=== PATIENT | male | born 1970 | race Caucasian/White ===

== ENCOUNTER 2020-06-26 16:30 | Outpatient (CLI) | payer SELFPAY ==
[2020-06-26 17:26] LABS: Estmated Average Glucose 232; Hemoglobin A1C 9.7 % (4.0-6.0)
[2020-06-26 17:32] LABS: Alanine Aminotransferase 14 U/L (0-41); Albumin Level 3.8 g/dL (3.5-5.2); Alkaline Phosphatase 96 IU/L (40-130); Anion Gap 14.5 (5-19); Aspartate Amino Transferase 16 U/L (0-40); Blood Urea Nitrogen 17 mg/dL (6-20); Calcium 10.2 mg/dL (8.5-10.5); Carbon Dioxide 25 mmol/L (22-29); Chloride 99 mmol/L (98-107); Chol HDL Ratio 5.49 mg/dL (1.0-5.00); Cholesterol 214 mg/dL (0-200); Glomerular Filtration Rate 64.6 mL/min (90-130); Glucose 269 mg/dL (65-115); HDL Cholesterol 39 mg/dL (60-100); LDL Cholesterol Calculated 118 mg/dL (50-129); LDL HDL Ratio 3.03 RATIO (0.00-3.22); Osmolality Calculated 284 mOsm/kg (285-295); Potassium 4.5 mmol/L (3.5-5.1); Sodium 134 mmol/L (136-145); Total Bilirubin 0.5 mg/dL (0.15-1.2); Total Protein 7.8 g/dL (6.6-8.7); Triglycerides 284 mg/dL (0-150); Uric Acid 7.3 mg/dL (3.4-7.0)
[2020-06-26 17:37] LABS: Creatinine Urine, Random 128 mg/dL (39-259)
[2020-06-26 17:47] LABS: Microalbum Creatinine Ratio Ur 8 mg/dL (0-20); Microalbumin Random Urine 1 ug/dL (0-20)
== END 2020-06-26 16:31 | disposition home or self-care (01) ==
LOC: LAB 16:33
PROVIDERS: Visit Provider General Practice
DX: E11.9 Type 2 diabetes mellitus without complications (principal)
CPT/HCPCS: 80053; 80061; 82044; 83036; 84550

== ENCOUNTER → 2022-01-26 10:15 | Outpatient (BNVA) | payer BC, SELFPAY | PROVIDERS: PCP Family Medicine; Visit Provider Family Medicine | DX: I25.10 Atherosclerotic heart disease of native coronary artery without angina pectoris (principal); I10 Essential (primary) hypertension; E11.65 Type 2 diabetes mellitus with hyperglycemia; B00.9 Herpesviral infection, unspecified; Z12.5 Encounter for screening for malignant neoplasm of prostate; Z11.59 Encounter for screening for other viral diseases; Z91.89 Other specified personal risk factors, not elsewhere classified; Z11.4 Encounter for screening for human immunodeficiency virus [HIV]; E78.2 Mixed hyperlipidemia | CPT/HCPCS: 80053; 80061; 82043; 83036; 84153; 84550; 85025; 86803; 87806 ==

== ENCOUNTER → 2022-08-30 09:55 | Outpatient (BNVA) | payer BC, SELFPAY | PROVIDERS: PCP Family Medicine; Visit Provider Family Medicine | DX: E11.65 Type 2 diabetes mellitus with hyperglycemia (principal); E78.2 Mixed hyperlipidemia; I10 Essential (primary) hypertension; I25.10 Atherosclerotic heart disease of native coronary artery without angina pectoris | CPT/HCPCS: 80048; 80061; 83036; 84443 ==

== ENCOUNTER → 2023-02-21 10:31 | Outpatient (BNVA) | payer BC, SELFPAY | PROVIDERS: PCP Family Medicine; Visit Provider Family Medicine | DX: E11.65 Type 2 diabetes mellitus with hyperglycemia (principal); E78.2 Mixed hyperlipidemia; I10 Essential (primary) hypertension; I25.10 Atherosclerotic heart disease of native coronary artery without angina pectoris; Z12.5 Encounter for screening for malignant neoplasm of prostate | CPT/HCPCS: 80053; 80061; 83036; 84443; 85025; G0103 ==

== ENCOUNTER 2023-06-28 18:57 | Emergency (ER) | payer BC, SELFPAY ==
--- NOTE | 2023-06-28 18:59 | XRR_ITS ---
PROCEDURE INFORMATION: Exam: XR Left Hand Exam date and time: 06/28/2023 7:04 PM Age: 52 years old Clinical indication: Injury or trauma; Fall; Dislocation; Severity not specified; Left; Index finger TECHNIQUE: Imaging protocol: Radiologic exam of the left hand. Views: 3 or more views. COMPARISON: No relevant prior studies available. FINDINGS: Bones/joints: Ulnar and dorsal subluxation of the 2nd middle phalanx relative to the proximal phalanx without fracture. Soft tissues: Normal. XR/XR hand LT min 3V* [id number] IMPRESSION: Ulnar and dorsal subluxation of the 2nd middle phalanx relative to the proximal phalanx without fracture.
[2023-06-28 19:03] VITALS: BP 156/82; PULSE 91; RESP 16; TEMP 36.2; O2SAT 98; BMI 45.4
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
== END 2023-06-28 20:04 | disposition home or self-care (01) ==
PROVIDERS: Emergency Provider Nurse Practitioner Family; PCP Family Medicine
DX: S63.281A Dislocation of proximal interphalangeal joint of left index finger, initial encounter (principal); Z79.82 Long term (current) use of aspirin; Z79.4 Long term (current) use of insulin; Z79.84 Long term (current) use of oral hypoglycemic drugs; V19.3XXA Pedal cyclist (driver) (passenger) injured in unspecified nontraffic accident, initial encounter
CPT/HCPCS: 26770; 73130; 99283

== ENCOUNTER → 2023-08-15 08:45 | Outpatient (BNVA) | payer BC, SELFPAY | PROVIDERS: PCP Family Medicine; Visit Provider Family Medicine | DX: M79.642 Pain in left hand (principal); E78.2 Mixed hyperlipidemia; E11.65 Type 2 diabetes mellitus with hyperglycemia; M10.9 Gout, unspecified; I10 Essential (primary) hypertension; I25.10 Atherosclerotic heart disease of native coronary artery without angina pectoris | CPT/HCPCS: 80053; 80061; 83036; 84443; 84550 ==

== ENCOUNTER → 2023-09-02 08:44 | Outpatient (BNVA) | payer BC, SELFPAY | PROVIDERS: PCP Family Medicine; Referring Provider Family Medicine; Visit Provider Physician Assistant | DX: S67.22XA Crushing injury of left hand, initial encounter; S63.281A Dislocation of proximal interphalangeal joint of left index finger, initial encounter; W17.89XA Other fall from one level to another, initial encounter | CPT/HCPCS: 73130 ==

== ENCOUNTER 2023-09-06 07:55 | Outpatient (RCR) | payer BC, SELFPAY | END 2023-09-29 23:59 | disposition home or self-care (01) | LOC: SOT 07:55 | PROVIDERS: PCP Family Medicine; Visit Provider Physician Assistant | DX: S67.22XD Crushing injury of left hand, subsequent encounter (principal); X58.XXXD Exposure to other specified factors, subsequent encounter | CPT/HCPCS: 97022; 97110; 97140; 97166; 97530 ==

== ENCOUNTER 2023-09-30 06:00 | Outpatient (RCR) | payer BC, SELFPAY | END 2023-10-30 23:59 | disposition home or self-care (01) | LOC: SOT 06:00 | PROVIDERS: PCP Family Medicine; Visit Provider Physician Assistant | DX: S67.22XD Crushing injury of left hand, subsequent encounter (principal); X58.XXXD Exposure to other specified factors, subsequent encounter | CPT/HCPCS: 97022; 97110; 97140 ==

== ENCOUNTER 2023-10-04 15:40 | Outpatient (CLI) | payer BC, SELFPAY ==
--- NOTE | 2023-10-04 16:00 | MR_ITS ---
WS: [id number] MRI OF THE LEFT HAND WITHOUT GADOLINIUM ENHANCEMENT. INDICATION: Fracture fingers middle and ring finger TECHNIQUE: Axial T1, axial T2, coronal T1, coronal STIR, sagittal T2, coronal 3D FSPGR FINDINGS: Images degraded by motion artifact Previously described avulsion fracture involving the palmar aspect second PIP joint avulsion fracture not well visualized on this study due to motion artifact. Mild diffuse soft tissue edema. No other v isualized acute fractures considering motion artifact. Normal bone marrow signal. Cystic degenerative changes involving the carpal bones. Degenerative arthr itis at the first [facility]. IMPRESSION: Limited examination due to significant patient motion. 1. Tiny palmar avulsion at the second PIP joint better visualized on the prior radiographs 2. No other visualized fractures considering significant motion artifact. 3. If persistent concern for fracture, CT could be obtained in further evaluation 4. No other acute findings.
== END 2023-10-04 15:41 | disposition home or self-care (01) ==
LOC: RAD 15:40
PROVIDERS: PCP Family Medicine; Visit Provider Physician Assistant
DX: S67.22XA Crushing injury of left hand, initial encounter (principal); S62.603A Fracture of unspecified phalanx of left middle finger, initial encounter for closed fracture; S62.605A Fracture of unspecified phalanx of left ring finger, initial encounter for closed fracture; S63.288A Dislocation of proximal interphalangeal joint of other finger, initial encounter; X58.XXXA Exposure to other specified factors, initial encounter
CPT/HCPCS: 73218

== ENCOUNTER 2023-10-31 06:00 | Outpatient (RCR) | payer BC, SELFPAY | END 2023-11-30 23:59 | disposition home or self-care (01) | LOC: SOT 06:00 | PROVIDERS: PCP Family Medicine; Visit Provider Physician Assistant | DX: S67.22XD Crushing injury of left hand, subsequent encounter (principal); X58.XXXD Exposure to other specified factors, subsequent encounter | CPT/HCPCS: 97022; 97110; 97140 ==

== ENCOUNTER → 2024-04-04 11:56 | Outpatient (BNVA) | payer BC, SELFPAY | PROVIDERS: PCP Family Medicine; Visit Provider Family Medicine | DX: M10.9 Gout, unspecified (principal); I25.10 Atherosclerotic heart disease of native coronary artery without angina pectoris; I10 Essential (primary) hypertension; E11.65 Type 2 diabetes mellitus with hyperglycemia; E11.9 Type 2 diabetes mellitus without complications; E78.2 Mixed hyperlipidemia; Z79.4 Long term (current) use of insulin; E83.42 Hypomagnesemia; E55.9 Vitamin D deficiency, unspecified; Z79.899 Other long term (current) drug therapy | CPT/HCPCS: 80053; 80061; 82306; 82607; 83036; 83735; 84443; 84550; 85025 ==

== ENCOUNTER → 2024-09-24 13:45 | Outpatient (BNVA) | payer BC, SELFPAY | PROVIDERS: PCP Family Medicine; Visit Provider Family Medicine | DX: E55.9 Vitamin D deficiency, unspecified (principal); N52.9 Male erectile dysfunction, unspecified; I10 Essential (primary) hypertension; I25.10 Atherosclerotic heart disease of native coronary artery without angina pectoris; E78.2 Mixed hyperlipidemia; E11.9 Type 2 diabetes mellitus without complications; Z79.4 Long term (current) use of insulin; Z12.5 Encounter for screening for malignant neoplasm of prostate; R79.89 Other specified abnormal findings of blood chemistry; M10.9 Gout, unspecified; E11.65 Type 2 diabetes mellitus with hyperglycemia | CPT/HCPCS: 80053; 80061; 82306; 82607; 83036; 84403; 84439; 84443; 85025; G0103 ==

== ENCOUNTER → 2025-03-04 15:00 | Outpatient (BNVA) | payer BC, SELFPAY | PROVIDERS: PCP Family Medicine; Visit Provider Family Medicine | DX: E11.65 Type 2 diabetes mellitus with hyperglycemia (principal); Z79.4 Long term (current) use of insulin; I10 Essential (primary) hypertension; I25.10 Atherosclerotic heart disease of native coronary artery without angina pectoris; E78.2 Mixed hyperlipidemia; E55.9 Vitamin D deficiency, unspecified; R79.89 Other specified abnormal findings of blood chemistry; Z12.5 Encounter for screening for malignant neoplasm of prostate | CPT/HCPCS: 80053; 80061; 82306; 82607; 83036; 84403; 84439; 84443; G0103 ==